=== PATIENT | female | born 1965 | race Hispanic/Latino ===

== ENCOUNTER 2024-11-15 14:53 | Inpatient (IN) | payer BC ==
[~2024-11-15] VITALS: Ht 157.5 cm; Wt 78.0 kg
[2024-11-15 16:28] LABS: BASOPHILS % 0.3 % (0.0-1.0); EOSINOPHILS % 0.3 % (0.0-6.0); LYMPHOCYTES % 27.2 % (18.0-39.1); MONOCYTES % 6.9 % (4.4-11.3); NEUTROPHILS % 64.9 % (38.7-80.0); RED CELL DISTRIBUTION WIDTH 13.0 % (11.7-14.4)
[2024-11-15 16:45] LABS: INR 1.15
[2024-11-15 16:48] LABS: EST GLOMERULAR FILTRATION RATE 101.0 ML/MIN (>=60)
[2024-11-15] MEDS ORDERED: IOPAMIDOL 370 MG/ML 100 ML INFUS..BTL INJ ONE (16:52)
[2024-11-15 16:59] LABS: LEUKOCYTE ESTERASE ,URINE NEGATIVE (NEGATIVE); PROTEIN,URINE DIPSTICK NEGATIVE (NEGATIVE); URINE UROBILINOGEN 0.2 mg/dL (0.2 - 1)
[2024-11-15 17:02] LABS: EPITHELIAL CELLS,URINE FEW /LPF
[2024-11-15] MEDS: ONDANSETRON HCL INJ 2MG/ML 2ML 2 MG/ML VIAL IV STA (17:55)
[2024-11-15] MEDS: KETOROLAC TROMETHAMINE 30 MG/ML VIAL IV STA (17:55)
[2024-11-15] MEDS: SODIUM CHLORIDE 0.9% 1000ML 1,000 ML IV STA (17:56)
[2024-11-15 19:19] VITALS: PULSE 81; RESP 19; TEMP 97.9
[2024-11-15] MEDS: SODIUM CHLORIDE 0.9% 1000ML 1,000 ML IV SCH (19:46)
[2024-11-15] MEDS: METRONIDAZOLE 500MG/NS 100ML 100 ML IV SCH (19:47)
[2024-11-15 20:46] VITALS: BP 129/76; PULSE 76; RESP 20; TEMP 97.9; O2SAT 97
[2024-11-15 21:50] VITALS: BP 129/76; RESP 20; TEMP 97.9; O2SAT 97
[2024-11-15 21:53] VITALS: BP 129/76; PULSE 76; RESP 20; TEMP 97.9; O2SAT 97
[2024-11-15 22:47] VITALS: BP 129/76; PULSE 76; RESP 20; TEMP 97.9; O2SAT 97
[2024-11-16] VITALS (7 sets, daily range): BP systolic 103–109; BP diastolic 60–68; PULSE 61–74; RESP 17–20; TEMP 98–98.8; O2SAT 95–100
[2024-11-16 06:45] LABS: BASOPHILS % 0.5 % (0.0-1.0); EOSINOPHILS % 1.5 % (0.0-6.0); LYMPHOCYTES % 30.0 % (18.0-39.1); MONOCYTES % 7.0 % (4.4-11.3); NEUTROPHILS % 60.7 % (38.7-80.0); RED CELL DISTRIBUTION WIDTH 12.9 % (11.7-14.4)
[2024-11-16 07:05] LABS: EST GLOMERULAR FILTRATION RATE 100.0 ML/MIN (>=60)
[2024-11-16] MEDS: ONDANSETRON HCL INJ 2MG/ML 2ML 2 MG/ML VIAL IV PRN (09:36)
[2024-11-16] MEDS: Morphine 4mg INJECTION 4 MG/ML INJ IV PRN (14:47)
[2024-11-17] VITALS: BP 102/63; PULSE 61; RESP 14; TEMP 98.2; O2SAT 97
[2024-11-17 04:00] VITALS: BP 97/60; PULSE 72; RESP 17; TEMP 98.2; O2SAT 97
[2024-11-17 04:49] VITALS: BP 97/60; PULSE 72; RESP 17; TEMP 98.2; O2SAT 97
[2024-11-17 05:50] LABS: BASOPHILS % 0.4 % (0.0-1.0); EOSINOPHILS % 2.1 % (0.0-6.0); LYMPHOCYTES % 45.9 % (18.0-39.1); MONOCYTES % 6.5 % (4.4-11.3); NEUTROPHILS % 45.0 % (38.7-80.0); RED CELL DISTRIBUTION WIDTH 12.8 % (11.7-14.4)
[2024-11-17 06:16] LABS: EST GLOMERULAR FILTRATION RATE 102.0 ML/MIN (>=60)
[2024-11-17 08:15] VITALS: BP 118/76; PULSE 57; RESP 18; TEMP 97.5; O2SAT 99
[2024-11-17] MEDS: SODIUM CHLORIDE 0.9% 1000ML 1,000 ML IV SCH (14:36)
[2024-11-17 16:41] VITALS: BP 130/72; PULSE 64; RESP 16; TEMP 98.5; O2SAT 95
[2024-11-17 20:00] VITALS: BP 119/71; PULSE 55; RESP 18; TEMP 98.5; O2SAT 96
[2024-11-17] MEDS: DIPHENHYDRAMINE HCL 25 MG CAP ONE (21:14)
[2024-11-17] MEDS ORDERED: DIPHENHYDRAMINE HCL 25 MG CAP PO PRN (21:15)
[2024-11-18] VITALS (7 sets, daily range): BP systolic 127–151; BP diastolic 73–84; PULSE 57–73; RESP 18–21; TEMP 97.6–98.6; O2SAT 96–100
[2024-11-18 08:59] LABS: BASOPHILS % 0.6 % (0.0-1.0); EOSINOPHILS % 2.2 % (0.0-6.0); LYMPHOCYTES % 38.6 % (18.0-39.1); MONOCYTES % 4.8 % (4.4-11.3); NEUTROPHILS % 52.9 % (38.7-80.0); RED CELL DISTRIBUTION WIDTH 12.6 % (11.7-14.4)
[2024-11-18 09:27] LABS: EST GLOMERULAR FILTRATION RATE 97.0 ML/MIN (>=60)
[2024-11-19 00:20] VITALS: BP 115/68; PULSE 68; RESP 20; TEMP 98.3; O2SAT 98
[2024-11-19 05:00] VITALS: BP 131/63; PULSE 80; RESP 20; TEMP 98.3
[2024-11-19 07:36] VITALS: BP 107/65; PULSE 62; RESP 16; TEMP 97.7; O2SAT 97
[2024-11-19 07:37] VITALS: BP 107/65; PULSE 62; RESP 16; TEMP 97.7; O2SAT 97
[2024-11-19] MEDS: ACETAMINOPHEN 325 MG TAB PO PRN (09:29)
[2024-11-19 12:13] VITALS: BP 129/78; PULSE 54; RESP 16; TEMP 98.1; O2SAT 100
[2024-11-19 15:14] VITALS: BP 126/71; PULSE 56; RESP 18; TEMP 97.9; O2SAT 97; O2SAT 99
== END 2024-11-19 18:30 | disposition home or self-care (01) | DRG 392 ==
LOC: ER 15:54 → ERHOLD 18:31 → MED/SURG3 21:03
PROVIDERS: ADMIT Internal Medicine; ATTEND Internal Medicine
DX: K57.20 Diverticulitis of large intestine with perforation and abscess without bleeding (principal); K21.9 Gastro-esophageal reflux disease without esophagitis; K59.09 Other constipation; Z90.710 Acquired absence of both cervix and uterus; Z90.49 Acquired absence of other specified parts of digestive tract
CPT/HCPCS: 36415; 74177; 80048; 80053; 81001; 85025; 85610; 85730; 99284; J1885; J2270; J2405; J2470; J2543; J7030; Q9967